=== PATIENT | female | born 1980 | race Caucasian/White ===

== ENCOUNTER 2017-06-27 14:08 | Outpatient (POV) | payer BC, SELFPAY | END 2017-06-27 16:04 | disposition home or self-care (01) | PROVIDERS: Visit Provider Podiatrist | DX: M76.822 Posterior tibial tendinitis, left leg (principal); M76.821 Posterior tibial tendinitis, right leg; M25.572 Pain in left ankle and joints of left foot; M25.571 Pain in right ankle and joints of right foot | CPT/HCPCS: 99202; 73630 ==

== ENCOUNTER → 2017-08-18 10:50 | Outpatient (CLI) | payer BC, SELFPAY | PROVIDERS: PCP Family Medicine; Visit Provider Family Medicine | DX: I10 Essential (primary) hypertension (principal) | CPT/HCPCS: 93005 ==

== ENCOUNTER 2018-11-13 14:27 | Outpatient (CLI) | payer BC, SELFPAY ==
--- NOTE | 2018-11-13 14:38 | US_ITS ---
US abdomen limited History:Right upper quadrant pain and vomiting Ordering Physician:Mathew Rangel MD Patient Age: 38 years Comparison:None Findings: Pancreas:Unremarkable. No obvious mass or abnormal fluid collection. No ductal dilatation Liver:Unremarkable. No obvious mass or abnormal fluid collection. No ductal dilatation Right Kidney:Unremarkable. Normal size and echogenicity. No hydronephrosis Gallbladder:No gallstones, gallbladder wall thickening, pericholecystic fluid, or biliary dilatation. There is some layering sludge present within the gallbladder. Common bile duct is normal at 3 mm. Impression: 1. No gallstones or pericholecystic fluid. No biliary dilatation. 2. Layering sludge within the gallbladder.
[2018-11-13 15:12] VITALS: BMI 24.7
[2018-11-13 15:20] VITALS: BP 137/89; PULSE 77; RESP 18; TEMP 37.1; O2SAT 100
[2018-11-13 15:50] VITALS: BP 145/86; PULSE 79; RESP 18
[2018-11-13 15:52] LABS: Alanine Aminotransferase 28 U/L (12-78); Albumin Level 3.6 gm/dL (3.4-5.0); Alkaline Phosphatase 46 U/L (46-116); Amylase 81 U/L (25-115); Anion Gap 14.2 mEq/L (5-15); Aspartate Amino Transferase 14 U/L (15-37); Bilirubin,Total 0.8 mg/dL (0.2-1.0); Blood Urea Nitrogen 9 mg/dL (7-18); Calcium 8.8 mg/dL (8.5-10.1); Carbon Dioxide 28 mmol/L (21.0-32.0); Chloride 101 mmol/L (98-107); Creatinine Clearance Estimated 123 mL/min (50-200); Creatinine,Serum 0.58 mg/dL (0.55-1.02); Estimated Glomerular Filt Rate 116 ml/min (>60); GFR (African American) 141 ML/MIN (>60); Globulin 3.7 gm/dl (1.3-3.2); Glucose 86 mg/dL (74-106); Lipase 376 u/L (73-393); Potassium 3.2 mmoL/L (3.5-5.1); Sodium 140 mmol/L (136-145); Total Protein,Serum 7.3 gm/dL (6.4-8.2)
[2018-11-13 16:20] VITALS: BP 140/84; PULSE 78; RESP 18
== END 2018-11-13 16:25 | disposition home or self-care (01) ==
PROVIDERS: PCP Family Medicine; Visit Provider Family Medicine
DX: R10.11 Right upper quadrant pain (principal); R11.10 Vomiting, unspecified
CPT/HCPCS: 76705; 80053; 82150; 83690; 96360

== ENCOUNTER → 2020-08-17 09:02 | Outpatient (CLI) | payer BC, SELFPAY ==
[2020-08-17 09:42] LABS: Basophils % 0.6 % (0.1-2.0); Eosinophils # 0.1 K/mm3 (0.0-0.4); Eosinophils % 2.8 % (0.1-12.0); Hematocrit 43.2 % (37.0-47.0); Hemoglobin 14.1 g/dL (12.2-16.2); Lymphocytes # 1.8 K/mm3 (0.7-4.5); Lymphocytes % 34.9 % (10-50); Mean Corpuscular HGB Conc 32.5 g/dL (31.8-35.4); Mean Corpuscular Hemoglobin 30.3 pg (27.0-31.2); Mean Platelet Volume 7.1 fl (7.4-10.4); Monocytes # 0.2 K/mm3 (0.1-1.0); Monocytes % 4.5 % (1.7-9.3); Neutrophils # 2.9 K/mm3 (1.8-7.8); Neutrophils % 57.1 % (37.0-80.0); Platelet Count 302 K/mm3 (142-424); Red Blood Count 4.65 M/mm3 (4.20-5.40); Red Cell Distribution Width 12.7 % (11.5-17.5); White Blood Count 5.1 K/mm3 (4.8-10.8)
[2020-08-17 10:01] LABS: Chloride 102 mmol/L (98-107)
[2020-08-17 10:02] LABS: Potassium 4.5 mmoL/L (3.5-5.1); Sodium 138 mmol/L (136-145)
[2020-08-17 10:04] LABS: Alanine Aminotransferase 19 U/L (12-78); Albumin Level 4.8 g/dl (3.5-5.0); Albumin/Globulin Ratio 1.8 (1.1-1.8); Alkaline Phosphatase 60 U/L (38-126); Anion Gap 10.5 mEq/L (5-15); Aspartate Amino Transferase 24 U/L (14-36); Bilirubin,Total 0.6 mg/dl (0.2-1.3); Blood Urea Nitrogen 12 mg/dl (7-17); Carbon Dioxide 30 mmol/L (22.0-30.0); Cholesterol 190 mg/dl (140-200); Estimated Glomerular Filt Rate 111 ml/min (>60); GFR (African American) 134 ML/MIN (>60); Globulin 2.7 g/dL (1.3-3.2); Total Protein,Serum 7.5 g/dl (6.3-8.2); Triglycerides 103 mg/dl (30-150); VLDL Cholesterol 21 mg/dL (0-40)
[2020-08-17 10:05] LABS: Calcium 10.3 mg/dl (8.4-10.2); Chol/HDL Ratio 2.1 (1-3.5); Glucose 113 mg/dl (74-100); HDL Cholesterol 91 mg/dl (40-60)
[2020-08-17 10:16] LABS: Direct LDL Cholesterol 71.84 mg/dL (100-129)
[2020-08-23 11:22] LABS: 1,25 Dihydroxy Vitamin D 43 pg/mL (.); 1,25-Dihydroxy, Vitamin D-2 <10 pg/mL (.); 1,25-Dihydroxy, Vitamin D-3 43 pg/mL (.)
== END ==
PROVIDERS: Visit Provider Nurse Practitioner Obstetrics & Gynecology
DX: Z01.419 Encounter for gynecological examination (general) (routine) without abnormal findings (principal)
CPT/HCPCS: 36415; 80053; 80061; 82652; 85025

== ENCOUNTER → 2021-07-20 14:19 | Outpatient (CLI) | payer BC, SELFPAY | PROVIDERS: Visit Provider Nurse Practitioner | DX: U07.1 COVID-19 (principal) | CPT/HCPCS: C9803; U0003; U0005 ==

== ENCOUNTER → 2022-02-02 09:05 | Outpatient (CLI) | payer BC, SELFPAY | PROVIDERS: PCP Family Medicine; Visit Provider Physician Assistant | DX: Z20.822 Contact with and (suspected) exposure to COVID-19 (principal) | CPT/HCPCS: C9803; U0003; U0005 ==

== ENCOUNTER → 2022-10-24 09:00 | Outpatient (CLI) | payer BC, SELFPAY ==
[2022-10-24 10:15] LABS: Chloride 103 mmol/L (98-107); Potassium 4.9 mmoL/L (3.5-5.1); Sodium 136 mmol/L (136-145)
[2022-10-24 10:18] LABS: Alanine Aminotransferase 19 U/L (12-78); Albumin Level 4.4 g/dl (3.5-5.0); Alkaline Phosphatase 51 U/L (38-126); Anion Gap 10.9 mEq/L (5-15); Aspartate Amino Transferase 23 U/L (14-36); Bilirubin,Total 0.5 mg/dl (0.2-1.3); Blood Urea Nitrogen 18 mg/dl (7-17); Calcium 9.2 mg/dl (8.4-10.2); Carbon Dioxide 27 mmol/L (22.0-30.0); Chol/HDL Ratio 1.8 (1-3.5); Cholesterol 174 mg/dl (140-200); Estimated Glomerular Filt Rate 110 ml/min (>60); GFR (African American) 133 ML/MIN (>60); Globulin 2.2 g/dL (1.3-3.2); Glucose 89 mg/dl (74-100); HDL Cholesterol 95 mg/dl (40-60); Total Protein,Serum 6.6 g/dl (6.3-8.2); Triglycerides 63 mg/dl (30-150); VLDL Cholesterol 13 mg/dL (0-40)
[2022-10-24 10:29] LABS: Direct LDL Cholesterol 68.88 mg/dL (100-129)
[2022-10-24 10:49] LABS: Thyroid Stimulating Hormone 1.93 uIU/mL (0.465-4.68)
== END ==
PROVIDERS: PCP Family Medicine; Visit Provider Physician Assistant
DX: I10 Essential (primary) hypertension (principal); Z13.220 Encounter for screening for lipoid disorders; Z79.899 Other long term (current) drug therapy
CPT/HCPCS: 36415; 80053; 80061; 84443

== ENCOUNTER → 2022-10-26 16:15 | Outpatient (CLI) | payer BC, SELFPAY ==
--- NOTE | 2022-10-26 16:20 | MM_ITS ---
PROCEDURE INFORMATION: Exam: Bilateral Screening 3D Mammography Exam date and time: 10/26/2022 4:09 PM Age: 42 years old Clinical indication: Baseline. A paternal cousin had breast cancer. TECHNIQUE: Imaging protocol: Bilateral Screening tomosynthesis and 2D mammography including computer-aided detection (CAD) when performed. COMPARISON: No relevant prior studies available. FINDINGS: MAMMOGRAPHY: Breast composition: The breasts are extremely dense, which lowers the sensitivity of mammography. Mass: None. Architectural distortion: None. Calcifications: Extensive diffuse scattered bilateral punctate calcifications, with no suspicious groupings. Asymmetric density: None. Skin thickening: None. Axillary adenopathy: None. IMPRESSION: No mammographic evidence of malignancy. Annual screening is recommended unless otherwise clinically indicated. ASSESSMENT: BI-RADS Category 2: Benign
== END ==
PROVIDERS: PCP Family Medicine; Visit Provider Physician Assistant
DX: Z12.31 Encounter for screening mammogram for malignant neoplasm of breast (principal)
CPT/HCPCS: 77063; 77067

== ENCOUNTER 2024-08-03 10:47 | Outpatient (CLI) | payer BC, SELFPAY ==
[2024-08-03 11:02] LABS: Basophils % 0.5 % (0.1-2.0); Eosinophils # 0.1 K/mm3 (0.0-0.4); Eosinophils % 1.5 % (0.1-12.0); Hematocrit 38.1 % (37.0-47.0); Hemoglobin 13.2 g/dL (12.2-16.2); Lymphocytes # 2.1 K/mm3 (0.7-4.5); Lymphocytes % 23.8 % (10-50); Mean Corpuscular HGB Conc 34.6 g/dL (31.8-35.4); Mean Corpuscular Volume 92.3 fl (81-99); Mean Platelet Volume 9.3 fl (7.4-10.4); Monocytes # 0.6 K/mm3 (0.1-1.0); Monocytes % 6.5 % (1.7-9.3); Neutrophils % 67.4 % (37.0-80.0); Platelet Count 305 K/mm3 (142-424); Red Blood Count 4.13 M/mm3 (4.20-5.40); Red Cell Distribution Width 12.5 % (11.5-17.5); White Blood Count 8.8 K/mm3 (4.8-10.8)
[2024-08-03 11:39] LABS: Albumin Level 4.3 g/dl (3.5-5.0); Chloride 105 mmol/L (98-107); Potassium 4.2 mmoL/L (3.5-5.1); Sodium 133 mmol/L (136-145)
[2024-08-03 11:42] LABS: Alanine Aminotransferase 22 U/L (12-78); Alkaline Phosphatase 61 U/L (38-126); Anion Gap 8.2 mEq/L (5-15); Aspartate Amino Transferase 26 U/L (14-36); Bilirubin,Total 0.7 mg/dl (0.2-1.3); Blood Urea Nitrogen 18 mg/dl (7-17); Calcium 9.3 mg/dl (8.4-10.2); Carbon Dioxide 24 mmol/L (22.0-30.0); Cholesterol 198 mg/dl (140-200); Estimated Glomerular Filt Rate 109 ml/min (>60); GFR (African American) 131 ML/MIN (>60); Globulin 2.2 g/dL (1.3-3.2); Glucose 95 mg/dl (74-100); Total Protein,Serum 6.5 g/dl (6.3-8.2); Triglycerides 136 mg/dl (30-150); VLDL Cholesterol 27 mg/dL (0-40)
[2024-08-03 11:52] LABS: Chol/HDL Ratio 2.1 (1-3.5); HDL Cholesterol 96 mg/dl (40-60)
[2024-08-03 11:54] LABS: Direct LDL Cholesterol 65.16 mg/dL (100-129)
[2024-08-03 12:02] LABS: Free T4 (Free Thyroxine) 0.89 ng/dl (0.78-2.19)
[2024-08-03 12:13] LABS: Thyroid Stimulating Hormone 1.68 uIU/mL (0.465-4.68)
== END 2024-08-03 23:59 | disposition home or self-care (01) ==
LOC: LAB 10:48
PROVIDERS: PCP Family Medicine; Visit Provider Nurse Practitioner Family
DX: R01.1 Cardiac murmur, unspecified (principal); I10 Essential (primary) hypertension; Z13.220 Encounter for screening for lipoid disorders
CPT/HCPCS: 36415; 80053; 80061; 84439; 84443; 85025

== ENCOUNTER 2024-08-07 14:14 | Outpatient (CLI) | payer BC, SELFPAY ==
--- NOTE | 2024-08-07 14:20 | CA_ITS ---
APPROVED REPORT EXAM: Comprehensive 2D, Doppler, and color-flow Echocardiogram Dowel Setting Machine Operator: DICK Farmer, RVS Ht: 5 ft 1 in Wt: 140lbs BSA: 1.62 BP: 122/68 mmHg Indications: Murmur 2D Dimensions IVSd 0.78 cm F: 0.6-1.0 LVEF (Visual) 63.00 % PWd 0.74 cm F: 0.6 - 1.0 LA Volume 70.00 mL LVDd 4.50 cm F: 3.9 - 5.3 LA Volume Index 43.860225 mL/m2 (M/F) 16-34 LVDs 2.97 cm F: 2.2 - 3.5 Left Atrium 3.17 cm F: 2.7 - 3.8 M-Mode Dimensions LA Diam 3.46 cm (1.9-4.0) EPSs 0.34 cm TAPSE 2.38 (<1.7) LV Diastology E Decel Time 160 (160-240 msec) E/A Ratio 1.28 MED A' 8.80 cm/s LAT A' 9.50 cm/s Aortic Valve ANTHONY Index 1.22 cm2/m2 AoV Peak Herb. 161.0 (50-130 cm/s) AO Peak GR. 10.40 mmHg AO Mean GR. 5.20 (<5 mmHg) AO VTI 33.5 (18-25 cm) ANTHONY (VTI) 2.02 (2.5-4.5 cm2) Mitral Valve MV A Velocity 91.0 (40-130 cm/s) E/A Ratio 1.28 Pulmonary Valve PV Peak Velocity 95.0 (50-150 cm/s) Tricuspid Valve TR P. Velocity 243.00 cm/s RAP Estimate 10.00 mmHg RVSP 33.60 mmHg Left Ventricle The left ventricle is normal size. The left ventricular systolic function is normal. The left ventricular ejection fraction is within the normal range. There is normal left ventricular wall thickness. There is normal LV segmental wall motion. The left ventricular diastolic function is normal. LVEF is 55%. Right Ventricle The right ventricle is normal size. The right ventricular systolic function is normal. Atria The left atrium is mildly dilated. The right atrium size is normal. There is no Doppler evidence of interatrial shunt. Aortic Valve Aortic valve opens well. There is no aortic valvular stenosis. No aortic regurgitation is present. Mitral Valve The mitral valve is normal in structure. No evidence of mitral valve stenosis. Mild mitral regurgitation. Tricuspid Valve Tricuspid valve is grossly normal in structure and function. Mild tricuspid regurgitation. RVSP is 20-25 mmHg. Pulmonic Valve The pulmonary valve is normal in structure. Trace pulmonic regurgitation. Great Vessels The aortic root is normal in size. The ascending aorta is not well-visualized. IVC is normal in size and collapses >50% with inspiration. Pericardium There is no pericardial effusion. Other Information Study Quality: Fair Conclusion Normal biventricular systolic function. Mild MR, mild TR. Electronically signed by : Jordana Martin MD 08/16/2024 20:17:39
== END 2024-08-07 23:59 | disposition home or self-care (01) ==
PROVIDERS: PCP Family Medicine; Visit Provider Nurse Practitioner Family
DX: R01.1 Cardiac murmur, unspecified (principal); R09.89 Other specified symptoms and signs involving the circulatory and respiratory systems
CPT/HCPCS: 93306

== ENCOUNTER 2024-08-17 15:52 | Outpatient (CLI) | payer BC, SELFPAY ==
--- NOTE | 2024-08-17 15:54 | MM_ITS ---
PROCEDURE INFORMATION: Exam: MG Bilateral Screening 3D Mammography Exam date and time: 08/17/2024 3:39 PM Age: 44 years old Clinical indication: Screening examination TECHNIQUE: Imaging protocol: Bilateral Screening tomosynthesis and 2D mammography including computer-aided detection (CAD) when performed. COMPARISON: MG MM DIG SCREENING MAMM BI W/CAD 10/26/2022 4:09 PM FINDINGS: MAMMOGRAPHY: Breast composition: The breasts are heterogeneously dense, which may obscure small masses. Mass: None. Architectural distortion: None. Calcifications: No suspicious calcifications. Asymmetric density: None. Skin thickening: None. Axillary adenopathy: None. IMPRESSION: No mammographic evidence of malignancy. Annual screening is recommended unless otherwise clinically indicated. ASSESSMENT: BI-RADS Category 1: Negative.
== END 2024-08-17 23:59 | disposition home or self-care (01) ==
LOC: RAD 15:53
PROVIDERS: PCP Family Medicine; Visit Provider Family Medicine
DX: Z12.31 Encounter for screening mammogram for malignant neoplasm of breast (principal)
CPT/HCPCS: 77063; 77067

== ENCOUNTER 2025-02-01 10:35 | Outpatient (CLI) | payer BC, SELFPAY ==
--- OUTSIDE RECORDS SUMMARY | 2025-01-11 10:30 | XMS_ITS ---
Author Organization [facility]isca Address [facility] [address] [place] [id number] Care Team Providers Care Cash Applications Specialist Name Role Phone Bernice Diaz Primary Care Provider [phone] Mathew Rangel Unavailable [phone] Allergies No Known Allergies REASON FOR VISIT tick bite Medications Medication SIG (Take, Route, Fr equency, Duration) Notes Start Date End Date Status Cephalexin 500 MG 1 capsule Orally twi ce a day; Duration: 7 days 01/11/2025 Active Nebivolol HCl 5 MG 1 tab(s) orally once a day; Duration: 90 days Active Vital Signs Blood pressure systolic 116 mm Hg 01/12/20 25 Blood pressure diastolic 62 mm Hg 025 Heart Rate 82 /min 01/11/2025 Height 60.50 in 01/11/2025 Weight 148 lbs 01/11/2025 BMI 28.43 kg/m2 01/11/2025 Encounters Encounter Location Date Provider Diagnosis [facility] [address] [place] [address] [place] [phone] 01/11/2025 Mathew Rangel Cellulitis of right leg L03.115 ; Insect bite (nonvenomous), right lower leg, initial encounter S80.861A ; Bitten or stung by nonvenomous insect and other nonvenomous arthropods, initial encounter W57.XXXA and BMI 28.0-28.9,adult Z68.28 Assessments Encounter Date Diagnosis (ICD Code) Assessment Notes Treatment Notes Treatment Clinical Notes Section Notes 01/11/2025 Cellulitis of right leg (ICD-10 - L03.115) 01/11/2025 Insect bite (nonvenomous), right lower leg, initial encounter (ICD-10 - S80.861A) 01/11/2025 Bitten or stung by nonvenomous insect and other nonvenomous arthropods, initial encounter (ICD-10 - W57.XXXA) 01/11/2025 BMI 28.0-28.9,adult (ICD-10 - Z68.28) Plan Of Treatment Medication Medication Name Sig Start Date Stop Date Notes Cephalexin 500 MG 1 capsule Orally twi ce a day; Duration: 7 days 01/11/2025 Next Appt Details Follow Up: via phone to repo rt progress, Reason: Progress Notes * Arpita WESLEYDOB:1980 (44 yo F)Acc No.[id number]:01/11/2025 Progress Notes Patient: Arpita OWENS Provider: Opal Rangel M.D. :1980 A ge:44 Y S ex:Female Date:01/11/2025 Address:[address] [place] [address] [address] , [facility], [id number] Pcp:Bernice Diaz Subjective: * Chief Complaints: * 1 . Tick bite. * HPI: D ermatology: 44 year old female presents with c/o bug bites P t complains of tick bite on rt leg. Pt states she pulled the tick off on Saturday. Pt states the bite area had been hurting pretty bad . * ROS: C ARDIOLOGY: no D izziness. n o C hest pain. G ASTROENTEROLOGY: no N ausea. n o V omiting. U ROLOGY: no D ifficulty urinating. n o B lood in urine. * Medical History: H ypertension, Dr. Feliciano - [facility], gall bladder disease, EF 16% in 2009. * Surgical History: W isdom Tteeth Extraction 1995. * Hospitalization/Major Diagno stic Procedure: c hild 2006, child 08/2009. * Family History: F ather: alive. M other: alive. 2 sister(s) - healthy. 1 son(s) , 1 daughter(s) - healthy. . * Social History: C URRENT TOBACCO USE: No . C affeine: yes, frequency:coffee, soda. Exercise: no. Marital Status: . Occupation: elementary school music teacher. Past smoking status: no. Recreational drug use: no. Alcohol: Yes, Type: beer, Frequency: social. * Medications: T aking Nebivolol HCl 5 MG Tablet 1 tab(s) orally once a day , Discontinued Vitamin D2 50 MCG (2000 UT) Tablet as directed orally once a day , Medication List reviewed and reconciled with the patient * Allergies: N .K.D.A. Objective: * Vitals: W t: 148, Temp: 98.2, BP: 116/62, HR: 82, Nurse: francy/michael, Ht: 60.50, BMI:28.43. * Examination: G eneral Examination: General Appearance: N AD. S kin: r ight popliteal fossa with an 8 cm wide area of dull skin erythema with a small central bite radha. ? Assessment: * Assessment: 1. C ellulitis of right leg - L03.115 (Primary) 2 . I nsect bite (nonvenomous), right lower leg, initial encounter - S80.861A 3 . B itten or stung by nonvenomous insect and other nonvenomous arthropods, initial encounter - W57.XXXA 4 . BMI 28.0-28.9,adult - Z68.28 Plan: * Treatment: * Procedure Codes: 1 036F TOBACCO NON-USER, G8420 BMI<30 AND >=22 CALC & DOCU, G8783 BP SCR PRFRM RCMDD DEFIND SCR INTVL, G8752 MOST RECENT SYSTOLIC BP < 140MM HG, G8754 MOST RECENT DIASTOLIC BP < 90MM HG * Follow Up: v ia phone to report progress * Images: Billing Information: * Visit Code: 38618 Office Visit, Est Pt., Level 3. * Procedure Codes: 1036F TOBACCO NON-USER. G8420 BMI<30 AND >=22 CALC & DOCU. G8783 BP SCR PRFRM RCMDD DEFIND SCR INTVL. G8752 MOST RECENT SYSTOLIC BP < 140MM HG. G8754 MOST RECENT DIASTOLIC BP < 90MM HG. * Electronic signature of Saba Rangel MD on 02/01/2025 at 10:40 AM EDT Sign off status: Pending * Provider: Opal Rangel M.D. Date: 0 01/11/2025 Generated for Reva evans/Cyndy/Konrad on: 0 02/01/2025 10:40 AM EDT History and Physical Notes * HPI (History of Present Illness) Category Sub-Category Detail Notes Category Not es Dermatology bug bites Pt complains of tick bite on rt leg. Pt states she pulled the tick off on Saturday. Pt states the bite area had been hurting pretty bad Examination Category Sub-Category Detail Notes Category Not es General Examination General Appearance: NAD Skin: right popliteal dmitriy a with an 8 cm wide area of dull skin erythema with a small central bite radha
--- OUTSIDE RECORDS SUMMARY | 2025-02-01 10:40 | XMS_ITS | Patient Health Record ---
Author Organization [facility] Address [address] [place] [id number] Care Team Providers Care Editorial Intern Name Role Phone Bernice Diaz Primary Care Provider Juan Carlos Mathew Unavailable [phone] ZabalaJaimieCoty Unavailable [phone] Allergies No Known Allergies Results Component Value Reference Range Notes Mammogram Reviewed date:09/08/2024 08:46:47 AM Interpretation:Negative, annual f/u Performing Lab: Notes/Report: Negative, annual f/u result Negative Echocardiogram Reviewed date:09/08/2024 08:46:24 AM Interpretation:mild MR, mild TR Performing Lab: Notes/Report: mild MR, mild TR H-TSH Reviewed date:08/03/2024 03:47:43 PM Interpretation:1.68 Performing Lab: Notes/Report: TSH 1.68 0.465-4.68 uIU/mL H-CBC Reviewed date:08/03/2024 03:48:28 PM Interpretation: Performing Lab: Notes/Report: WBC 8.8 4.8-10.8 K/mm3 RBC 4.13 4.20-5.40 M/mm3 HGB 13.2 12.2-16.2 g/dL HCT 38.1 37.0-47.0 % MCV 92.3 81-99 fl MCH 32.0 27.0-31.2 pg MCHC 34.6 31.8-35.4 g/dL RDW 12.5 11.5-17.5 % PLT 305 142-424 K/mm3 MPV 9.3 7.4-10.4 fl NE% 67.4 37.0-80.0 % LY% 23.8 10-50 % MO% 6.5 1.7-9.3 % EO% 1.5 0.1-12.0 % BA% 0.5 0.1-2.0 % NE# 6.0 1.8-7.8 K/mm3 LY# 2.1 0.7-4.5 K/mm3 MO# 0.6 0.1-1.0 K/mm3 EO# 0.1 0.0-0.4 K/mm3 BA# 0.0 0-0.2 K/mm3 H-Lipid Panel Reviewed date:08/03/2024 03:47:29 PM Interpretation:TC 198; TG 136; LDL 65.16; HDL 96 Performing Lab: Notes/Report: Patient Fasting? Y TRIG 136 30-150 mg/dl CHOL 198 140-200 mg/dl DLDL 65.16 100-129 mg/dL VLDL 27 0-40 mg/dL HDL 96 40-60 mg/dl CHLHDL 2.1 1-3.5 H-CMP Reviewed date:08/03/2024 03:47:59 PM Interpretation: Performing Lab: Notes/Report: NA 133 136-145 mmol/L K 4.2 3.5-5.1 mmoL/L CL 105 98-107 mmol/L CO2 24 22.0-30.0 mmol/L GAP 8.2 5-15 mEq/L BUN 18 7-17 mg/dl CREATT 0.60 0.52-1.04 mg/dl GFRAA 131 >60 ML/MIN EGFR 109 >60 ml/min GLU 95 74-100 mg/dl CA 9.3 8.4-10.2 mg/dl BILIT 0.7 0.2-1.3 mg/dl AST 26 14-36 U/L ALT 22 12-78 U/L TP 6.5 6.3-8.2 g/dl ALB 4.3 3.5-5.0 g/dl GLOB 2.2 1.3-3.2 g/dL AGRATIO 2.0 1.1-1.8 ALP 61 38-126 U/L H-T4 free Reviewed date:08/03/2024 03:48:14 PM Interpretation: Performing Lab: Notes/Report: T4F 0.89 0.78-2.19 ng/dl Reason For Referral No Information Medications Medication SIG (Take, Route, Fr equency, Duration) Notes Start Date End Date Status Nebivolol HCl 5 MG 1 tab(s) orally juan y; Duration: 90 days Active Immunizations Vaccine Route Administration Date Status Comme nts COVID 19 Moderna Unknown 08/10/2020 Administered COVID 19 Moderna Unknown 09/09/2020 Administered COVID 19 Moderna Unknown 06/12/2021 Administered Fluzone Intradermal Quad private(18-64yrs) ID Intradermal 06/29/2015 Administered Fluzone Intradermal Quad private(18-64yrs) ID Intradermal 05/08/2016 Administered Fluzone Quad (6months&older) IM Intramuscular 07/26/2017 Administered Fluzone Quad (6months&older) IM Intramuscular 06/02/2018 Administered Fluzone Quad (6months&older) IM Intramuscular 06/25/2019 Administered Fluzone Quad (6months&older) Unknown 06/02/2020 Administered Fluzone Quad (6months&older) IM Intramuscular 09/12/2021 Administered Fluzone Quad (6months&older) IM Intramuscular 05/03/2022 Administered Fluzone Quad (6months&older) IM Intramuscular 05/28/2023 Administered H1N1 flu vaccine IM Intramuscular 05/12/2009 Administered Tetanus Tdap-Adacel (over 7yrs) IM Intramuscular 01/29/2014 Administered xFluzone (6mos and older)-trivalent IM Intramuscular 06/21/2011 Administered xFluzone (6mos and older)-trivalent IM Intramuscular 06/25/2013 Administered xFluzone Intradermal (18-64yrs)-trivalent ID Intradermal 05/24/2014 Administered [facility] Problems Problem Type SNOMED Code ICD Code Onset Dates Problem Status W/U Status Risk Notes Problem Essential hypertension (I10) Active confirmed Problem Plantar wart of left foot ([id number]) Plantar wart of left foot (B07.0) Active confirmed Vital Signs Heart Rate 70 /min 02/01/2025 Blood pressure diastolic 74 mm Hg 02/01/2025 Height 60.50 in 02/01/2025 Blood pressure systolic 122 mm Hg 02/01/2025 Weight 148.2 lbs 02/01/2025 BMI 28.46 kg/m2 02/01/2025 Encounters Encounter Location Date Provider Diagnosis [facility] [address] [place] [phone] 08/03/2024 Coty aZbala Essential hypertensi on I10 ; Heart murmur R01.1 and Lipid screening Z13.220 [facility] [address] [place] [phone] 01/11/2025 Mathew Jensen Cellulitis of right leg L03.115 ; Insect bite (nonvenomous), right lower leg, initial encounter S80.861A ; Bitten or stung by nonvenomous insect and other nonvenomous arthropods, initial encounter W57.XXXA and BMI 28.0-28.9,adult Z68.28 [facility] [place] [phone] 02/01/2025 Coty Zabala Essential hypertensi on I10 ; Chest pain R07.9 and Headache, unspecified R51.9 [facility] [address] [place] [phone] 07/31/2024 Bernice Diaz Essential hypertensi on I10 [facility] [place] [phone] 08/03/2024 Coty Zabala Heart murmur R01.1 a nd Carotid bruit R09.89 [facility] [place] [phone] 08/10/2024 Coty Zabala Assessments Encounter Date Diagnosis (ICD Code) Assessment Notes Treatment Notes Treatment Clinical Notes Section Notes 07/31/2024 Essential hypertension (ICD-10 - I10) 08/03/2024 Essential hypertension (ICD-10 - I10) discussed weight loss and low salt diet 08/03/2024 Heart murmur (ICD-10 - R01.1) will do labs; discussed murmur without symptoms 08/03/2024 Carotid bruit (ICD-10 - R09.89) 08/03/2024 Heart murmur (ICD-10 - R01.1) 01/11/2025 Insect bite (nonvenomous), right lower leg, initial encounter (ICD-10 - S80.861A) 01/11/2025 Cellulitis of right leg (ICD-10 - L03.115) 02/01/2025 Essential hypertension (ICD-10 - I10) 02/01/2025 Chest pain (ICD-10 - R07.9) 02/01/2025 Headache, unspecified (ICD-10 - R51.9) 01/11/2025 Bitten or stung by nonvenomous insect and other nonvenomous arthropods, initial encounter (ICD-10 - W57.XXXA) 08/03/2024 Lipid screening (ICD-10 - Z13.220) 01/11/2025 BMI 28.0-28.9,adult (ICD-10 - Z68.28) Plan Of Treatment Pending Test Test Name Order Date X ray : Chest 02/01/2025 EKG 02/01/2025 Complete Metabolic Profile 08/03/2024 CBC 08/03/2024 Carotid Duplex 02/01/2025 Carotid Duplex 08/03/2024 lipid profile 08/03/2024 TSH+Free T4 08/03/2024 P-Comprehensive Metabolic Panel (CMP) P-Lipid Panel 02/01/2025 Insurance Providers Payer Name Payer Address Payer Phone Subscriber Number Group Number Insured Name Patient Relationship to Insured Coverage Start Date Coverage End Date [employer] [address] [place] [address] [id number] Arpita Chua Self - patient is the insured Medications Administered Medication Instructions Date of Administration Dosage Notes Depo- Medrol 40 mg/ml 11/19/2008 1.5 mL Dexamethasone 01/24/2012 4 mg Medical (General) History Medical History History ICD Code Hypertension Dr. Feliciano - [facility] gall bladder disease, EF 16% in 2009 Surgical History Surgery Date(Month/Year) Dows Tteeth Extraction 1995 Hospitalization History Reason Date(Month/Year) child 08/2009 child 2006
--- NOTE | 2025-02-01 10:48 | ECG_ITS ---
APPROVED REPORT Exam: Resting ECG HR:57 bpm ECG Measurements Heart Rate 57 AXES IN 123 P -7 QRSd 85 QRS 38 QT 411 T 35 QTc 405 Conclusion SINUS BRADYCARDIA BORDERLINE ECG UNCONFIRMED REPORT Electronically signed by : Jose Elias Campuzano MD 02/03/2025 16:17:34
--- NOTE | 2025-02-01 10:52 | XR_ITS ---
FINAL REPORT CLINICAL HISTORY: CHEST PAIN for a while COMPARISON: None FINDINGS: No acute pulmonary density is evident. There is no evidence of effusion or other pleural disease. The mediastinum has a normal appearance. The cardiac silhouette is unremarkable. IMPRESSION: Unremarkable chest exam. Reviewed, Interpreted and Dictated by Sundar Wakefield MD Transcribed by Rachel Ocampo Authenticated and [facility]
== END 2025-02-01 23:59 | disposition home or self-care (01) ==
LOC: RT 10:36
PROVIDERS: PCP Family Medicine; Visit Provider Nurse Practitioner Family
DX: R00.1 Bradycardia, unspecified (principal); R94.31 Abnormal electrocardiogram [ECG] [EKG]; R07.9 Chest pain, unspecified
CPT/HCPCS: 71046; 93005